=== PATIENT | female | born 1985 | race Caucasian/White ===

== ENCOUNTER 2020-09-04 07:04 | Emergency (ER) | payer OTHER, SELFPAY ==
[2020-09-04 07:20] VITALS: BP 135/87; PULSE 113; RESP 20; TEMP 36.3; O2SAT 100; BMI 32.8
--- NOTE | 2020-09-04 07:53 | ECG_ITS ---
Test Reason : TACHY Blood Pressure : / mmHG Vent. Rate : 102 BPM Atrial Rate : 102 BPM P-R Int : 126 ms QRS Dur : 092 ms QT Int : 356 ms P-R-T Axes : 071 040 047 degrees QTc Int : 463 ms Sinus tachycardia Nonspecific ST abnormality Inferior leads Abnormal ECG When compared with ECG of 21-APR-2013 14:57, Heart rate has increased ST more depressed Inferior leads Referred By: Shen aLi Electronically Signed By:HARVEY KAYE MD
--- NOTE | 2020-09-04 07:53 | XR_ITS ---
EXAMINATION: XR CHEST CLINICAL INFORMATION: Pain. COMPARISON: 04/09/2013 chest radiograph. TECHNIQUE: Frontal view of the chest was obtained. FINDINGS: No significant abnormality is noted involving the heart, lungs, mediastinum, bony thorax or soft tissues. XR/XR chest 1V IMPRESSION: No acute cardiopulmonary process.
--- NOTE | 2020-09-04 08:04 | ED_ITS ---
HPI - URI/Sore Throat General Chief Complaint: Upper Respiratory Symptoms Stated Complaint: covid + rapid heart rate Time Seen by Provider: 09/04/20 07:51 Source: patient Mode of arrival: ambulatory Limitations: no limitations History of Present Illness HPI Narrative: This is a 54 years old female who presented to the emergency department with a chief complaint of URI symptoms cough or shortness of breath. She was seen at the [facility] she was as a focal with the test was negative but she was told that clinically she has a COVID . There is no vomiting, no diarrhea. MD elicited complaint: cough, sore throat and nasal congestion Consistency: constant Severity: moderate Description of mucous: clear Exacerbating factors: nothing Relieving factors: nothing Associated symptoms: denies other symptoms Related Data Allergies Allergy/AdvReac Type Severity Reaction Status Date / Time No Known Allergies Allergy Unverified 06/30/20 17:41 [No Known Allergies*] Review of Systems Review of Systems: Yes all other systems are reviewed and are negative Cardiovascular: Cardiovascular: Denies chest pain, Denies chest pain at rest, Denies chest pain with activity and Denies irregular heart rhythm Respiratory: Respiratory: Reports no additional respiratory complaints Gastrointestinal: Gastrointestinal: Denies abdominal pain Genitourinary: Genitourinary: Reports no additional female genitourinary complaints Neurologic: Reports system reviewed and no additional complaints, except as documented Psychiatric: Psychiatric: Reports anxiety PMFSH Past Medical History Attestation statement: The following information was validated with the patient. Surgical History Hx of tubal ligation Social History Social History Advance Directives: No Advance Directives Information Provided: Yes Physical Exam Vital Signs: Vital Signs: Last Vital Signs Temp 97.4 F 09/04/20 07:20 Pulse 96 09/04/20 09:27 Resp 18 09/04/20 09:27 BP 135/87 09/04/20 07:20 Pulse Ox 100 09/04/20 09:27 Body Mass Index 32.8 Const: General: cooperative and healthy appearing; No acute distress Orie ntation/consciousness: oriented to person HENMT: Head: Yes normal to inspection Ears: hearing grossly normal bilaterally Eyes: General: appearance normal, both eyes and all related structures Neck: Neck: Yes normal visual inspection and Yes full ROM Chest: Chest palpation & inspection: normal inspection of the chest Resp: Effort & Inspection: normal respiratory effort and able to speak in complete sentences Cardio: Jugular venous distension: no JVD Palpation: normal PMI Rate: regular rate GI: Inspection: Yes normal to inspection Palpation (GI): Soft to palpation, nontender and no guarding Skin: General skin exam: no rashes or lesions noted Neuro: General: oriented to person and CN's II-XI intact bilaterally Extrem: General: Yes normal to inspection Course Reevaluation(s) Reevaluation #1: Remain hemodynamically stable she does have resting tachycardia, had chest x-rays negative D-dimer is negative CBC is within normal limit I anticipated disharge home MDM - URI/Sore Throat Lab Data Result diagrams: 09/04/20 09:20 09/04/20 09:19 Labs: Lab Results 09/04/20 09/04/20 Range/Units 09:19 09:20 WBC 8.0 (4.8-10.8) X10*3/uL RBC 4.74 (4.20-5.50) X10*6/uL Hgb 14.4 (12.0-16.0) g/dl Hct 41.7 (37-47) % MCV 88.0 (80-98) fL MCH 30.4 (27.0-33.0) pg MCHC 34.5 (31.0-35.0) g/dl RDW 12.4 (11.0-16.0) % Plt Count 280 (160-400) X10*3/uL MPV 9.0 L (9.4-12.3) fL Immature Gran % (Auto) 0.6 H (0.0-0.4) % Neut % (Auto) 73.6 H (45-73) % Lymph % (Auto) 16.6 L (20-40) % [place] % (Auto) 6.2 (2-11) % Eos % (Auto) 2.5 (0-4) % Baso % (Auto) 0.5 (0-2) % Lymph # (Auto) 1.3 (1.2-4.9) X10*3/uL [place] # (Auto) 0.5 (0.1-1.2) X10*3/uL Eos # (Auto) 0.2 (0.0-0.4) X10*3/uL Baso # (Auto) 0.0 (0.0-0.2) X10*3/uL Abs Immat Gran (auto) 0.05 H (0.00-0.03) X10*3/uL Absolute Neuts (auto) 5.9 (2.0-8.3) X10*3/uL Absolute Nucleated RBC 0.000 (0.0-0.012) X10*3/uL Nucleated RBC % (auto) 0.0 (0.0-0.2) /100WBC D-Dimer < 200 NG/ML ECG Data Attestation: I personally reviewed and interpreted this ECG as follows: ECG interpretation date: 09/04/20 ECG interpretation time: 08:27 Pacemaker model: Normal sinus rhythm a rate [address]-T segments are isoelectr
[2020-09-04 09:25] LABS: Basophils Percent Auto 0.5 % (0-2); Eosinophils Absolute Auto 0.2 X10*3/uL (0.0-0.4); Eosinophils Percent Auto 2.5 % (0-4); Hematocrit 41.7 % (37-47); Hemoglobin 14.4 g/dl (12.0-16.0); Imm Gran Abs Auto 0.05 X10*3/uL (0.00-0.03); Imm Gran Pct Auto 0.6 % (0.0-0.4); Lymphocytes Absolute Auto 1.3 X10*3/uL (1.2-4.9); Lymphocytes Percent Auto 16.6 % (20-40); Mean Corpuscular HGB Conc 34.5 g/dl (31.0-35.0); Mean Corpuscular Hemoglobin 30.4 pg (27.0-33.0); Monocytes Absolute Auto 0.5 X10*3/uL (0.1-1.2); Monocytes Percent Auto 6.2 % (2-11); Neutrophils Absolute Auto 5.9 X10*3/uL (2.0-8.3); Neutrophils Percent Auto 73.6 % (45-73); Platelet Count 280 X10*3/uL (160-400); Red Blood Count 4.74 X10*6/uL (4.20-5.50); Red Cell Distribution Width 12.4 % (11.0-16.0)
[2020-09-04 09:26] LABS: MANUAL DIFF FLAG NO
[2020-09-04 09:27] VITALS: PULSE 96; RESP 18; O2SAT 100
[2020-09-04 09:35] LABS: D Dimer < 200 NG/ML
[2020-09-04 09:46] LABS: Alanine Aminotransferase 36 U/L (0-31); Albumin Level 4.4 g/dL (3.5-5.0); Alkaline Phosphatase 60 U/L (39-117); Anion Gap 13 (12-20); Aspartate Amino Transferase 26 U/L (5-31); Bilirubin Total 0.2 mg/dL (0.0-1.0); Blood Urea Nitrogen 13 mg/dL (9-16); Carbon Dioxide 20 mmol/L (22-29); Chloride 108 mmol/L (96-108); Creatinine Clr Calc Pharmacy 83.1; Estimated Glomerular Filt Rate > 60; Glucose Random 83 mg/dL (60-115); Potassium 4.1 mmol/l (3.3-5.1); Sodium 137 mmol/L (135-145); Total Protein 7.1 g/dL (6.5-8.0)
--- NOTE | 2020-09-04 09:46 | PC.NURSE ---
PT GIVEN 2 CUPS APPLE JUICE.
[2020-09-04 09:52] LABS: Troponin-I High Sensitivity < 3.5 ng/L (<3.5-17.0)
[2020-09-04 10:21] LABS: Influenza A PCR NEGATIVE (Negative); Influenza B PCR NEGATIVE (Negative); Resp Syncy Virus RNA Qual PCR NEGATIVE (Negative); SARS COV2 PCR INHOUSE NEGATIVE (Negative)
== END 2020-09-04 09:58 | disposition home or self-care (01) ==
PROVIDERS: Emergency Provider Emergency Medicine
DX: R05 Cough (principal); R50.9 Fever, unspecified; Z20.828 Contact with and (suspected) exposure to other viral communicable diseases
CPT/HCPCS: 0241U; 36415; 71045; 80053; 84484; 85025; 85379; 93005; 99283; 99284

== ENCOUNTER 2021-10-11 06:16 | Outpatient (REF) | payer OTHER, SELFPAY | END 2021-10-11 06:17 | disposition home or self-care (01) | LOC: HO.HMGCLDS 06:16 | PROVIDERS: Visit Provider Internal Medicine | DX: Z20.822 Contact with and (suspected) exposure to COVID-19 (principal) | CPT/HCPCS: C9803; U0003; U0005 ==

== ENCOUNTER 2023-01-14 09:02 | Emergency (ER) | payer OTHER, SELFPAY ==
--- NOTE | ~2023-01-14 | US_ITS ---
EXAMINATION: US ABDOMEN COMPLETE CLINICAL INFORMATION: Acute abdominal and right flank pain. COMPARISON: None available. TECHNIQUE: Real-time imaging of the abdominal viscera. FINDINGS: PANCREAS: Visualized portions unremarkable ABDOMINAL AORTA: Visualized portions unremarkable. INFERIOR VENA CAVA: Visualized portions unremarkable. LIVER: Homogeneous echotexture without focal abnormality. GALLBLADDER: Multiple echogenic gallstones are seen. No mural thickening or pericholecystic fluid. COMMON BILE DUCT: Normal in caliber measuring 0.3 cm in diameter. RIGHT KIDNEY: 12.3 cm. Unremarkable. LEFT KIDNEY: 12.2 cm unremarkable. SPLEEN: 9.9 cm. Unremarkable. FREE FLUID: None. US/US abdomen complete IMPRESSION: Cholelithiasis without evidence for acute cholecystitis. If symptoms persist or worsen, short-term repeat right upper quadrant ultrasound can be performed to assess for change.
--- NOTE | ~2023-01-14 | CT_ITS ---
EXAMINATION: CT ABDOMEN AND PELVIS WITH CONTRAST CLINICAL INFORMATION: Right lower quadrant tenderness, rule out appendicitis. COMPARISON: None available. TECHNIQUE: Multidetector volumetric images were obtained from the superior aspect of the liver through the pubic symphysis following administration 85 mL of Omnipaque 350 intravenous contrast. Sagittal and coronal reformatted images were obtained on the technologist's workstation. Oral contrast: No This CT examination was performed using dose optimization techniques as appropriate, variously including the following: *Automated exposure control *Adjustment of mA and/or kV according to patient size (this includes techniques or standardized protocols for targeted exams where dose is matched to indication/reason for exam; i.e. extremities or head) *Use of iterative reconstruction technique DLP: 705 mGy-cm FINDINGS: LUNG BASES: The visualized lung bases are unremarkable. LIVER, GALLBLADDER, AND BILIARY TREE: Unremarkable. PANCREAS: Unremarkable. SPLEEN: Unremarkable. ADRENAL GLANDS: Unremarkable. KIDNEYS AND URETERS: The kidneys are normal in size, shape, and attenuation. No hydronephrosis, hydroureter, or calculi seen. No perinephric stranding. BLADDER: Unremarkable. GASTROINTESTINAL TRACT: The stomach and small bowel are unremarkable. The cecum extends to the left of midline anteriorly. The appendix is unremarkable. Liquefied stool and air-fluid levels are seen the level the mid transverse colon with more solid stool seen distally to the rectum. No surrounding abnormality. ABDOMINAL WALL: No significant hernia is appreciated. LYMPH NODES: No lymphadenopathy. VASCULAR: Unremarkable. PELVIC VISCERA: Unremarkable. Mild free fluid in the cul-de-sac. OSSEOUS STRUCTURES: Unremarkable. CT/CT abdomen pelvis w IV con IMPRESSION: 1. Normal appendix without evidence for acute appendicitis. 2. Liquefied stool and air-fluid levels in the mid transverse colon with more solid stool seen distally to the rectum. Mild infectious/inflammatory diarrhea cannot be excluded. No evidence for acute colitis or diverticulitis. 3. Mild free fluid in the cul-de-sac is likely physiologic.
[2023-01-14 09:06] VITALS: BP 154/104; PULSE 100; RESP 19; TEMP 36.6; O2SAT 98; BMI 37.5
[2023-01-14] MEDS: Ketorolac Tromethamine 30 MG/ML VIAL 15 MG IVPUSH (10:08)
[2023-01-14 10:13] LABS: MANUAL DIFF FLAG NO
[2023-01-14] MEDS: 0.9 % Sodium Chloride 1,000 ML 999 ML IV (10:14)
[2023-01-14 10:15] LABS: Basophils Percent Auto 0.4 % (0-2); Eosinophils Absolute Auto 0.1 X10*3/uL (0.0-0.4); Eosinophils Percent Auto 1.4 % (0-4); Hematocrit 40.7 % (37.0-47.0); Hemoglobin 14.3 g/dl (12.0-16.0); Imm Gran Abs Auto 0.03 X10*3/uL (0.00-0.03); Imm Gran Pct Auto 0.4 % (0.0-0.4); Lymphocytes Absolute Auto 1.5 X10*3/uL (1.2-4.9); Lymphocytes Percent Auto 21.1 % (20-40); Mean Corpuscular HGB Conc 35.1 g/dl (31.0-35.0); Mean Corpuscular Hemoglobin 30.2 pg (27.0-33.0); Mean Corpuscular Volume 85.9 fL (80.0-98.0); Monocytes Absolute Auto 0.5 X10*3/uL (0.1-1.2); Monocytes Percent Auto 7.5 % (2-11); Neutrophils Percent Auto 69.2 % (45-73); Platelet Count 277 X10*3/uL (160-400); Red Blood Count 4.74 X10*6/uL (4.20-5.50); Red Cell Distribution Width 12.8 % (11.0-16.0); White Blood Count 7.2 X10*3/uL (4.8-10.8)
[2023-01-14 10:21] VITALS: BP 125/83; PULSE 86; RESP 16; TEMP 36.8; O2SAT 97
[2023-01-14 10:39] LABS: Appearance Urine Clear; Color Urine Yellow; Glucose Urine UA Negative (Negative); Leukocyte Esterase Urine Negative (Negative); Nitrite Urine Negative (Negative); Specific Gravity - Urine <= 1.005 (1.005-1.025); Urine Blood Negative (Negative); Urine Ketones Negative (Negative); Urine Protein Negative (Neg-Trace)
[2023-01-14 10:41] LABS: Alanine Aminotransferase 27 U/L (0-31); Albumin Level 4.4 g/dL (3.5-5.0); Alkaline Phosphatase 57 U/L (39-117); Anion Gap 11 (12-20); Aspartate Amino Transferase 26 U/L (5-31); Bilirubin Direct 0.2 mg/dL (0.0-0.5); Bilirubin Total 0.7 mg/dL (0.0-1.0); Blood Urea Nitrogen 11 mg/dL (9-16); Calcium 9.6 mg/dL (8.4-10.2); Carbon Dioxide 22 mmol/L (22-29); Chloride 109 mmol/L (96-108); Creatinine Clr Calc Pharmacy 92.5; Estimated Glomerular Filt Rate > 60; Glucose Random 102 mg/dL (60-115); Lipase 26 U/L (8-78); Potassium 4.4 mmol/L (3.3-5.1); Sodium 138 mmol/L (135-145); Total Protein 7.3 g/dL (6.5-8.0)
[2023-01-14 10:44] LABS: UPreg QC Valid YES; Urine Pregnancy NEGATIVE (NEGATIVE)
[2023-01-14 12:11] VITALS: BP 111/72; PULSE 101; RESP 20; O2SAT 100
--- NOTE | 2023-01-14 12:28 | ED_ITS ---
HPI - Abdominal Pain General Chief Complaint: Abdominal Pain Stated Complaint: back pain into abd Time Seen by Provider: 01/14/23 09:36 Source: patient Mode of arrival: ambulatory Limitations: no limitations History of Present Illness HPI narrative: 37-year-old female presents with abdominal pain. The pain started 1 day ago. The pain is constant but intermittently gets worse. The pain sometimes radiates to the right back. There is associated urinary frequency, urgency but no dysuria, blood in urine. She denies any diarrhea or constipation. She has had some mild nausea. The pain is described as sharp. There is no clear relieving or exacerbating features. Patient has never had this pain before. Patient denies history of abdominal surgeries. Related Data Previous Rx's Medication Instructions Recorded dicyclomine 20 mg tablet 20 mg PO QID PRN abdominal 01/14/23 discomfort #14 tabs ondansetron 4 mg disintegrating 4 mg PO Q8H PRN nausea and 01/14/23 tablet vomiting #10 tabs Allergies Allergy/AdvReac Type Severity Reaction Status Date / Time latex Allergy Rash Verified 01/14/23 09:05 [facility] Past Medical History Surgical History Hx of tubal ligation Social History Social History Advance Directives: No Advance Directives Information Provided: Yes Physical Exam ED Vital Signs: Vital Signs - 24 hr 01/14/23 09:06 01/14/23 10:21 01/14/23 12:11 Temperature 98 F 98.3 F Pulse Rate 100 86 101 H Respiratory Rate 19 16 20 Blood Pressure 154/104 H 125/83 111/72 Pulse Oximetry 98 97 100 Oxygen Delivery Method Room Air Room Air Room Air 01/14/23 14:00 Temperature Pulse Rate 96 Respiratory Rate 16 Blood Pressure 129/79 Pulse Oximetry 98 Oxygen Delivery Method Room Air BMI result Body Mass Index 37.5 GEN: Well developed, no acute distress, alert, oriented HEENT: Normocephalic, atraumatic, normal external ears, nose appears normal, no oropharyngeal edema or exudates Eyes: Normal to appearance Neck: Supple, no lymphadenopathy Respiratory: Talks in complete sentences, no respiratory distress, clear to auscultation bilaterally Cardiovascular: Regular rate and rhythm, no murmurs rubs or gallops Abdomen: Soft, right-sided tenderness, nondistended, no guarding, no rebound Back: No CVA tenderness Extremities: No clubbing cyanosis or edema Neurologic: No focal neurologic deficits, cranial nerves 2-12 intact, strength is 5/5 bilaterally, gait normal Skin: No rash Course Course Course Narrative: 37-year-old female presents with right-sided abdominal and flank pain. Differential diagnosis includes appendicitis, cholecystitis, renal colic. Will start with an ultrasound and re-evaluate patient. Reevaluation(s) Reevaluation #1: discussed results, reeval demonstrates some RLQ tenderness will order CT to r/o appy Medical Decision Making Medical Decision Making MDM Narrative: 37-year-old female presents with right-sided abdominal pain. The differential diagnosis is broad including acute cholecystitis, biliary colic, renal colic, appendicitis, colitis, diverticulitis, epiploic appendagitis, mesenteric adenitis, gastroenteritis. Doubt a catastrophic etiology such as dissection or ruptured AAA. Patient will have imaging studies, laboratory analysis, analgesia, nausea medication and IV fluids and re-evaluate. Differential Diagnosis Differential Diagnoses: The differential diagnosis associated with the presentation includes (acute cholecystitis, biliary colic, renal colic, appendicitis, colitis, diverticulitis, epiploic appendagitis, mesenteric adenitis, gastroenteritis) Right-sided abdominal pain Admission/Observation Consideration of admission/observation: Escalation of care including admission/observation considered Lab Data MDM Lab Attestation statement: I reviewed the patient's lab results. 01/14/23 10:07 01/14/23 10:07 Labs: Lab Results 01/14/23 01/14/23 01/14/23 Range/Units 10:07 10:07 10:15 WBC 7.2 (4.8-10.8) X10*3/uL RBC 4.74 (4.20-5.50) X10*6/uL Hgb 14.3 (12.0-16.0) g/dl Hct 40.7 (37.0-47.0) % MCV 85.9 (80.0-98.0) fL MCH 30.2 (27.0-33.0) pg MCHC 35.1 H (31.0-35.0) g/dl RDW 12.8 (11.0-16.0) % Plt Count 277 (160-400) X10*3/uL MPV 9.0 L (9.4-12.3) fL Immature Gran % (Auto) 0.4 (0.0-0.4) % Neut % (Auto) 69.2 (45-73) % Lymph % (Auto) 21.1 (20-40) % [place] % (Auto) 7.5 (2-11) % Eos % (Auto) 1.4 (0-4) % Baso % (Auto) 0.4 (0-2) % Lymph # (Auto) 1.5 (1.2-4.9) X10*3/uL [place] # (Auto) 0.5 (0.1-1.2) X10*3/uL Eos # (Auto) 0.1 (0.0-0.4) X10*3/uL Baso # (Auto) 0.0 (0.0-0.2) X10*3/uL Abs Immat Gran (auto) 0.03 (0.00-0.03) X10*3/uL Absolute Neuts (auto) 5.0 (2.0-8.3) x10*3/uL Absolute Nucleated RBC 0.000 (0.0-0.012) X10*3/uL Nucleated RBC % (auto) 0.0 (0.0-0.2) /100WBC Sodium 138 (135-145) mmol/L Potassium 4.4 (3.3-5.1) mmol/L Chloride 109 H (96-108) mmol/L Carbon Dioxide 22 (22-29) mmol/L Anion Gap 11 L (12-20) BUN 11 (9-16) mg/dL Creatinine 0.90 (0.5-1.4) mg/dL Estim Creat Clear Calc 92.5 Estimated GFR > 60 Random Glucose 102 (60-115) mg/dL Calcium 9.6 D (8.4-10.2) mg/dL Total Bilirubin 0.7 (0.0-1.0) mg/dL Direct Bilirubin 0.2 (0.0-0.5) mg/dL AST 26 (5-31) U/L ALT 27 (0-31) U/L Alkaline Phosphatase 57 (39-117) U/L Total Protein 7.3 (6.5-8.0) g/dL Albumin 4.4 (3.5-5.0) g/dL Lipase 26 (8-78) U/L Urine Color Yellow Urine Appearance Clear Urine pH 7.0 (5.0-9.0) Ur Specific [place] <= 1.005 (1.005-1.025) Urine Protein Negative (Neg-Trace) mg/dL Urine Glucose (UA) Negative (Negative) mg/dL Urine Ketones Negative (Negative) mg/dL Urine Blood Negative (Negative) Urine Nitrite Negative (Negative) Ur Leukocyte Esterase Negative (Negative) Urine Test (NEGATIVE) 01/14/23 Range/Units 10:15 WBC (4.8-10.8) X10*3/uL RBC (4.20-5.50) X10*6/uL Hgb (12.0-16.0) g/dl Hct (37.0-47.0) % MCV (80.0-98.0) fL MCH (27.0-33.0) pg MCHC (31.0-35.0) g/dl RDW (11.0-16.0) % Plt Count (160-400) X10*3/uL MPV (9.4-12.3) fL Immature Gran % (Auto) (0.0-0.4) % Neut % (Auto) (45-73) % Lymph % (Auto) (20-40) % [place] % (Auto) (2-11) % Eos % (Auto) (0-4) % Baso % (Auto) (0-2) % Lymph # (Auto) (1.2-4.9) X10*3/uL [place] # (Auto) (0.1-1.2) X10*3/uL Eos # (Auto) (0.0-0.4) X10*3/uL Baso # (Auto) (0.0-0.2) X10*3/uL Abs Immat Gran (auto) (0.00-0.03) X10*3/uL Absolute Neuts (auto) (2.0-8.3) x10*3/uL Absolute Nucleated RBC (0.0-0.012) X10*3/uL Nucleated RBC % (auto) (0.0-0.2) /100WBC Sodium (135-145) mmol/L Potassium (3.3-5.1) mmol/L Chloride (96-108) mmol/L Carbon Dioxide (22-29) mmol/L Anion Gap (12-20) BUN (9-16) mg/dL Creatinine (0.5-1.4) mg/dL Estim Creat Clear Calc Estimated GFR Random Glucose (60-115) mg/dL Calcium (8.4-10.2) mg/dL Total Bilirubin (0.0-1.0) mg/dL Direct Bilirubin (0.0-0.5) mg/dL AST (5-31) U/L ALT (0-31) U/L Alkaline Phosphatase (39-117) U/L Total Protein (6.5-8.0) g/dL Albumin (3.5-5.0) g/dL Lipase (8-78) U/L Urine Color Urine Appearance Urine pH (5.0-9.0) Ur Specific [place] (1.005-1.025) Urine Protein (Neg-Trace) mg/dL Urine Glucose (UA) (Negative) mg/dL Urine Ketones (Negative) mg/dL Urine Blood (Negative) Urine Nitrite (Negative) Ur Leukocyte Esterase (Negative) Urine Test NEGATIVE (NEGATIVE) Independent Interpretation I performed an independent interpretation of an: Ultrasound (No acute inflammatory state, no hydronephrosis) Radiology Impression Discussion of test interpretation with radiology: I have reviewed the radiologist's reading. ( US/US abdomen complete IMPRESSION: Ch olelithiasis without evidence for acute cholecystitis. If symptoms persist or worsen, short-term repeat right upper quadrant ultrasound can be performed to assess for change. Dictated By:Ever Cline MDSigned By:<Electronically signed by) Radiologist Impression: CT/CT abdomen pelvis w IV con IMPRESSION: 1.? Normal appendix without evidence for acute appendicitis. 2.? Liquefied stool and air-fluid levels in the mid transverse colon with more solid stool seen distally to the rectum. Mild infectious/inflammatory diarrhea cannot be excluded. No evidence for acute colitis or diverticulitis. 3.? Mild free fluid in the cul-de-sac is likely physiologic. ? Dictated By: Ever Cline MD Signed By: <Electronically signed by Ever Cline MD in [place]> 01/14/23 1603 Tests considered The following testing was considered but not selected: CT scan abdomen and pelvis Prescription Management I considered prescription management with: Pain Medication Medications Administered Discontinued Medications Generic Name Dose Route Start Last Admin Trade Name Freq PRN Reason Stop Dose Admin Sodium Chloride 1,000 mls @ 999 mls/hr 01/14/23 10:00 01/14/23 12:49 Ns IV 01/14/23 11:00 Infused .Q1H1M RAÚL Infusion Iohexol 100 ml 01/14/23 15:15 01/14/23 15:15 Iohexol 350 Mg/Ml 100 Ml Infus..Btl IV 01/14/23 15:16 85 ml ONCE ONE Administration Ketorolac Tromethamine 15 mg 01/14/23 09:55 01/14/23 10:08 Ketorolac Tromethamine 30 Mg/Ml Vial IVPUSH 01/14/23 09:56 15 mg ONCE ONE Administration Discharge Plan Discharge Clinical Impression: Abdominal pain Patient Disposition: Home, Self-Care Instructions: Abdominal Pain (ED) Prescriptions: New ondansetron 4 mg tablet,disintegrating 4 mg PO Q8H PRN (Reason: nausea and vomiting) Qty: 10 0RF dicyclomine 20 mg tablet 20 mg PO QID PRN (Reason: abdominal discomfort) Qty: 14 0RF
[2023-01-14 14:00] VITALS: BP 129/79; PULSE 96; RESP 16; O2SAT 98
[2023-01-14] MEDS: iohexoL 350 MG/ML 100 ML INFUS..BTL IV (15:15)
[2023-01-14] MEDS: Acetaminophen 325 MG TABLET 975 MG PO (16:37)
== END 2023-01-14 16:38 | disposition home or self-care (01) ==
PROVIDERS: Emergency Provider Emergency Medicine; PCP Family Medicine
DX: R10.9 Unspecified abdominal pain (principal); M54.50 Low back pain, unspecified; Z79.899 Other long term (current) drug therapy
CPT/HCPCS: 36415; 74177; 76700; 80048; 80076; 81003; 81025; 83690; 85025; 96361; 96374; 99284; 99285; J1885; Q9967

== ENCOUNTER 2023-02-03 00:18 | Emergency (ER) | payer OTHER, SELFPAY ==
[2023-02-03 00:21] VITALS: BP 153/105; PULSE 111; RESP 20; TEMP 36.3; O2SAT 96; BMI 36.3
[2023-02-03 00:55] LABS: MANUAL DIFF FLAG NO
[2023-02-03 00:56] LABS: Basophils Percent Auto 0.4 % (0-2); Eosinophils Absolute Auto 0.1 X10*3/uL (0.0-0.4); Eosinophils Percent Auto 0.9 % (0-4); Hematocrit 44.2 % (37.0-47.0); Hemoglobin 15.4 g/dl (12.0-16.0); Imm Gran Abs Auto 0.05 X10*3/uL (0.00-0.03); Imm Gran Pct Auto 0.5 % (0.0-0.4); Lymphocytes Absolute Auto 2.4 X10*3/uL (1.2-4.9); Lymphocytes Percent Auto 24.9 % (20-40); Mean Corpuscular HGB Conc 34.8 g/dl (31.0-35.0); Monocytes Absolute Auto 0.5 X10*3/uL (0.1-1.2); Monocytes Percent Auto 5.5 % (2-11); Neutrophils Absolute Auto 6.6 x10*3/uL (2.0-8.3); Neutrophils Percent Auto 67.8 % (45-73); Platelet Count 353 X10*3/uL (160-400); Red Blood Count 5.14 X10*6/uL (4.20-5.50); Red Cell Distribution Width 12.4 % (11.0-16.0); White Blood Count 9.7 X10*3/uL (4.8-10.8)
[2023-02-03 01:21] LABS: Alanine Aminotransferase 28 U/L (0-31); Albumin Level 4.8 g/dL (3.5-5.0); Alkaline Phosphatase 61 U/L (39-117); Anion Gap 18 (12-20); Aspartate Amino Transferase 23 U/L (5-31); Bilirubin Direct 0.1 mg/dL (0.0-0.5); Bilirubin Total 0.3 mg/dL (0.0-1.0); Blood Urea Nitrogen 8 mg/dL (9-16); Calcium 9.2 mg/dL (8.4-10.2); Carbon Dioxide 19 mmol/L (22-29); Chloride 110 mmol/L (96-108); Creatinine Clr Calc Pharmacy 97.4; Estimated Glomerular Filt Rate > 60; Glucose Random 122 mg/dL (60-115); Lipase 25 U/L (8-78); Potassium 4.1 mmol/L (3.3-5.1); Sodium 143 mmol/L (135-145); Total Protein 7.8 g/dL (6.5-8.0)
[2023-02-03 01:26] LABS: HCG Quantitative < 2 mIU/mL
== END 2023-02-03 02:14 | disposition left against medical advice (07) ==
PROVIDERS: Emergency Provider Emergency Medicine
DX: R10.13 Epigastric pain (principal); R10.11 Right upper quadrant pain; Z79.899 Other long term (current) drug therapy
CPT/HCPCS: 36415; 80048; 80076; 83690; 84702; 85025; 99281; 99282

== ENCOUNTER → 2023-02-06 09:04 | Outpatient (BNVA) | payer OTHER, SELFPAY | PROVIDERS: Visit Provider Surgery | DX: K80.50 Calculus of bile duct without cholangitis or cholecystitis without obstruction (principal) | CPT/HCPCS: 99202 ==

== ENCOUNTER 2023-03-13 05:51 | Day surgery (SDC) | payer OTHER, SELFPAY ==
[2023-03-08 10:14] VITALS: BMI 38.1
--- NOTE | 2023-03-12 13:44 | MHC.SHP ---
Pre-Procedural Eval Section A Date of Service: 03/12/23 The patient is an INPATIENT: No Changes since office visit: No Cold of Flu in the past 2 weeks, No New Medical Problems, No Changes in Medication and No Patient answered all questions The History & Physical has been completed within 30 days and I have reviewed it.: Yes Section B Chief Complaint: Calculus of bile duct without cholangitis or eulalio Allergies: Allergies Allergy/AdvReac Type Severity Reaction Status Date / Time latex Allergy Intermediate Rash Verified 03/08/23 10:09 Plan I have reviewed the history and physical and performed a pertinent physical examination on my patient. No changes have occurred unless specified. Time Spent With Patient Time: Total time managing care of this patient today ____ minutes.
[2023-03-13] VITALS (11 sets, daily range): BP systolic 117–154; BP diastolic 78–105; PULSE 69–90; RESP 12–16; TEMP 36.6–36.9; O2SAT 96–100
[2023-03-13] MEDS: Lactated Ringers 1,000 ML 50 ML IVCONT (06:25)
--- NOTE | 2023-03-13 07:24 | HO.ANESPROP2 ---
HPI - Anesthesia Eval Consult details Narrative: for lap. cholecystectomy PMFSH Active Problems Active Problems: All Active Problems (Updated 03/08/23 @ 10:07 by Rachel Harrison RN) Recurrent biliary colic (Acute) Past Medical History Medical History (Updated 03/13/23 @ 07:35 by Jocelyn Curtis RN) Anxiety Depression Insomnia Palpitations Seasonal allergies Sleep apnea Patient : No Narrative: TMJ problems Family History Family history of problems with anesthesia: No Surgical History Surgical History History of endometrial ablation (Unknown) History of salpingectomy Hx of tubal ligation S/P ablation operation for arrhythmia History of Problems with Anesthesia: No Social History Social History (Updated 02/06/23 @ 09:27 by TWIN Samayoa) 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 If so, by whom?: No Are you DNR?: No Advance Directives: No Advance Directives Information Provided: Yes Advance Directives on File: No Recently lost weight without trying: No Nutrition Risks: No Nutritional Risk Patient : No FDLMP: unknown : No Poor oral hygiene: No Meds Allergies Allergy/AdvReac Type Severity Reaction Status Date / Time latex Allergy Intermediate Rash Verified 03/13/23 06:02 Active Medications: Current Medications Lactated Ringer's (Lr) 1,000 mls @ 50 mls/hr IVCONT .Q20H RAÚL Last Admin: 03/13/23 06:25 Dose: 50 mls/hr Home Medications Medication Instructions Recorded Confirmed Last Taken Type cetirizine 10 mg capsule (Zyrtec) 10 mg PO DAILY PRN Allergy Symptoms 02/06/23 03/08/23 Unknown History fluticasone propionate 50 1 spray intranasal DAILY 02/06/23 03/08/23 Unknown History mcg/actuation nasal spray,suspension (Flonase Allergy Relief) levomilnacipran 120 mg capsule,24 120 mg PO DAILY 02/06/23 03/08/23 03/13/23 05:00 History hr,extended release (Fetzima) linaclotide 72 mcg capsule 72 mcg PO DAILY 02/06/23 03/08/23 Unknown History (Linzess) melatonin 10 mg capsule 10 mg PO BEDTIME PRN Insomnia 02/06/23 03/08/23 Unknown History zolpidem 12.5 mg tablet,extended 12.5 mg PO BEDTIME PRN Insomnia 02/06/23 03/08/23 Unknown History release,multiphase (Ambien CR) Probiotic 1 cap PO DAILY 03/08/23 03/08/23 Unknown History multivitamin 1 tab PO DAILY 03/08/23 03/08/23 Unknown History propranolol 20 mg tablet 20 mg PO DAILY 03/08/23 03/08/23 03/13/23 05:00 History Exam Exam Date and Time: March 13, 2023 0724 Height,Weight and Vital Signs: Height 5 ft 3 in Weight 97.522 kg Last Vital Signs Temp 97.9 F 03/13/23 06:16 Pulse 70 03/13/23 06:16 Resp 15 03/13/23 06:16 BP 117/78 03/13/23 06:16 Pulse Ox 98 03/13/23 06:16 O2 Del Method Room Air 03/13/23 06:16 Airway Mallampati Class: I TM Dist: >3cm (h/o TMJ problems) Neck ROM: Full Heart: ok Lungs: ok Assessment and Plan Final Anesthetic Review Family History of Problems with Anesthesia: No History of Problems with Anesthesia: No NPO: Yes ASA Class: III Final Preanesthetic Review: No Changes in Pt Med Stat, Meds/Allgs Chart Reviewed, Consent Obtained/Reviewed and Anes Risks/Benef Reviewed Patient Risk: Intermediate Procedure Risk: Intermediate Anesthetic Plan Anesthetic Plan: GA and Agree w/ Assess. and Plan Disposition: Standard PACU
--- NOTE | 2023-03-13 08:51 | W.PM.OPN ---
Operative Note Operative Note Date of Service: 03/13/23 Narrative: Preoperative diagnosis: [] Recurrent biliary colic Postop diagnosis: [] Same Procedure [] laparoscopic cholecystectomy Surgeon: [] [employer] Generalist: [] amaury Dinero Type of Anesthesia: [] General Indication for surgery: [] Intraoperative findings demonstrated large gallbladder with multiple small gallstones. Extensive omental and gastric adhesions to the gallbladder. Very corpulent abdomen Findings: [] Patient is brought to the operating room, placed on the operating table in supine position, after adequate level of general anesthesia was induced, the patient's abdomen was prepped and draped in usual sterile fashion. Using an infraumbilical curvilinear incision, Salmeron technique was used to insufflate the abdominal cavity to 15 mm of CO2. Upper midline and right subcostal ports were placed under direct laparoscopic view, and the patient was placed in reverse Trendelenburg position, and tilted to the left. Gallbladder was grasped using laparoscopic graspers, and retracted superiorly and laterally. Omental and gastric adhesions were swept off the gallbladder were its hilum was approached. Common bile duct was identified and preserved throughout the procedure. Cystic artery and cystic duct were each identified, circumferentially skeletonized, each traced directly into the gallbladder, and critical view obtained. Each was clipped proximally x2, distally x1, and transected. Gallbladder was then cauterized from the gallbladder fossa using Bovie. Specimen was placed in an Endo-Catch bag, a retrieved through the umbilical port. Abdominal cavity was copiously irrigated and secured for hemostasis. All ports removed under direct laparoscopic view. Wounds were closed in the following manner; fascia at the umbilicus port site was closed using interrupted 0 Vicryl sutures. Skin wounds were closed using subcuticular 4-0 Vicryl sutures followed by Steri-Strips and sterile dressings. Wounds were infiltrated 0.5% Marcaine at completion. Sponge, needle, and instrument counts were reported to be correct. Patient tolerated the procedure well emerged anesthesia stable condition. EBL minimal
[2023-03-13] MEDS: ondansetron HCL 4 MG/2 ML VIAL IVPUSH (09:13)
[2023-03-13] MEDS: fentaNYL citrate/PF 100 MCG/2 ML VIAL 50 MCG IVPUSH (09:16)
[2023-03-13] MEDS: oxyCODONE HCl Immed Release 5 MG TABLET 10 MG PO (09:25)
[2023-03-13] MEDS: Acetaminophen 325 MG TABLET 650 MG PO (09:25)
== END 2023-03-13 10:53 | disposition home or self-care (01) ==
PROVIDERS: PCP Family Medicine; Visit Provider Surgery
PROC: 0FT44ZZ Resection of Gallbladder, Percutaneous Endoscopic Approach (ICD-10-PCS; CPT 47562; principal; 2023-03-13 07:30)
DX: K80.10 Calculus of gallbladder with chronic cholecystitis without obstruction (principal); K82.8 Other specified diseases of gallbladder; K66.0 Peritoneal adhesions (postprocedural) (postinfection); F41.8 Other specified anxiety disorders; J30.2 Other seasonal allergic rhinitis; G47.00 Insomnia, unspecified; R00.2 Palpitations; G47.33 Obstructive sleep apnea (adult) (pediatric); Z79.899 Other long term (current) drug therapy; Z79.51 Long term (current) use of inhaled steroids; Z91.040 Latex allergy status; Z87.891 Personal history of nicotine dependence
CPT/HCPCS: 47562; 49329; 88304; J0690; J1885; J2250; J2405; J2795; J3010

== ENCOUNTER → 2023-03-25 09:51 | Outpatient (BNVA) | payer OTHER, SELFPAY | PROVIDERS: PCP Family Medicine; Visit Provider Surgery | DX: K80.50 Calculus of bile duct without cholangitis or cholecystitis without obstruction (principal); Z90.49 Acquired absence of other specified parts of digestive tract | CPT/HCPCS: 99212 ==

== ENCOUNTER → 2023-04-04 13:31 | Outpatient (BNVA) | payer OTHER, SELFPAY | PROVIDERS: PCP Family Medicine; Visit Provider Surgery | DX: R10.32 Left lower quadrant pain (principal); Z90.49 Acquired absence of other specified parts of digestive tract | CPT/HCPCS: 99212 ==